=== PATIENT | female | born 1995 | race Caucasian/White ===

== ENCOUNTER 2018-09-26 09:04 | Inpatient (IN) | payer OTHER ==
[~2018-09-26] VITALS: Ht 170.2 cm; Wt 108.9 kg
[2018-09-26 09:10] VITALS: BP 138/79
[2018-09-26] MEDS ORDERED: BIRTH CONTROL (09:14)
[2018-09-26 09:35] LABS: ABSOLUTE NEUTROPHILS 16.9 thou/uL (1.4-8.2); BASOPHILS 0.3 % (0.0-2.0); EOSINOPHILS 0.5 % (0.0-3.0); HEMATOCRIT 38.6 % (37.0-47.0); HEMOGLOBIN 12.5 gm/dL (12.0-15.0); LYMPHOCYTES 4.4 % (24.0-44.0); MCH 25.7 pg (26.0-34.0); MCHC 32.5 g/dL (28.0-37.0); MCV 79.1 fL (80.0-100.0); MONOCYTES 3.6 % (1.0-8.0); PLATELET COUNT 315 thou/uL (150-400); POLYS 91.2 % (36.0-66.0); RBC 4.88 mil/uL (4.20-5.00); RDW 14.9 % (10.5-14.5); WBC 18.5 thou/uL (4.0-11.0)
[2018-09-26 09:45] LABS: CALCIUM 9.5 mg/dL (8.5-10.1); CREATININE 0.9 mg/dL (0.6-1.0); POTASSIUM 3.7 mmol/L (3.5-5.1)
[2018-09-26 09:51] LABS: TOTAL BILIRUBIN 0.5 mg/dL (<0.1-1.0)
--- NOTE | 2018-09-26 12:38 | NUR ---
PT TO [facility] AT THIS TIME, INDEPENDENTLY WITHOUT DIFFICULTY. CALL LIGHT IN REACH
[2018-09-26 13:00] LABS: AMP/METHAMP Negative (Negative); BARBITURATES Negative (Negative); BENZODIAZEPINES Negative (Negative); COCAINE Negative (Negative); METHADONE Negative (Negative); OPIATES Negative (Negative); PCP Negative (Negative)
[2018-09-26 13:48] VITALS: BP 154/91
[2018-09-26 14:04] VITALS: BP 127/85
--- NOTE | 2018-09-26 14:07 | NUR ---
PT AMBULATE TO BATHROOM, WALKING INDEPENDENTLY
--- NOTE | 2018-09-26 14:13 | NUR ---
FIRST ATTEMPT TO CALL REPORT AT THIS TIME, WAS INFORMED ROOM HAS NOT BEEN ASSIGNED YET AND FLOOR RN WILL CALL BACK W/IN 5-10 MINS
--- NOTE | 2018-09-26 15:04 | NUR ---
HERO ADMITTED TO ROOM AT THIS TIME. SHE IS HYPERVENTILATING. SHE DENIES PAIN. ORIENTED TO AND ROUTINE. WILL CONT WITH PLAN OF CARE
--- NOTE | 2018-09-26 16:13 | EKG ---
[place] [address] [facility] [place] [address] ELECTROCARDIOGRAM REPORT Name: NIKUNJ MANUEL Room #: 356-P ADM IN M.R.#: [id number] ������������������ Admission: 09/26/18 ������������������ Attend Phys: Ming Constantino MD Discharge: ������������������ Date of : 89 Report #: [id number] ����������������������������������������������������������������� [id number] THIS REPORT FOR: //name// [facility] ED Test Date: 2018-09-26 Test Time: 09:10:12 Pat Name: NIKUNJ MNAUEL Department: Room: 356 Gender: F [employer]visor [employer]: CARRIE : 1995 Requested By: Homero Nevarez Order Number: [id number] MD: Fitz Snider Measurements Intervals [place] Rate: 106 P: 32 FL: 117 QRS: 80 QRSD: 85 T: 23 QT: 333 QTc: 443 Interpretive Statements Sinus tachycardia Otherwise normal tracing No previous ECG available for comparison Electronically Signed On 09-26-2018 16:12:53 CDT by Fitz Snider [email or web address] ��������������������������������������������� <ELECTRONICALLY SIGNED> ���������������������������������������� By: Fitz Snider MD, [facility] ��������������������������������������������� 09/26/18 1612 0910 9 Fitz Snider MD, FACC /EPI
[2018-09-26 19:45] VITALS: BP 134/81
[2018-09-27] VITALS: BP 140/87
[2018-09-27 03:30] VITALS: BP 118/71
--- NOTE | 2018-09-27 04:34 | NUR ---
Patient making slow progress towards outcome goals. Temp 99.4 oral this morning. BP and rhythm stable. Short of air and tachycardic HR up to 160 with activity and returns to baseline at rest. Refused Lovenox, states understanding of risks. IVFluids infusing. States breathing improved overall.
[2018-09-27 05:41] LABS: HEMATOCRIT 35.1 % (37.0-47.0); HEMOGLOBIN 11.4 gm/dL (12.0-15.0); MCH 25.8 pg (26.0-34.0); MCHC 32.5 g/dL (28.0-37.0); MCV 79.5 fL (80.0-100.0); RBC 4.41 mil/uL (4.20-5.00); RDW 15.5 % (10.5-14.5); WBC 15.4 thou/uL (4.0-11.0)
[2018-09-27 05:54] LABS: CREATININE 0.8 mg/dL (0.6-1.0); POTASSIUM 3.3 mmol/L (3.5-5.1)
[2018-09-27 07:13] VITALS: BP 113/61
[2018-09-27] MEDS ORDERED: LEVAQUIN 500 M500 M2 PO (12:13)
[2018-09-27] MEDS ORDERED: PREDNISONE 10 M10 MG PO (12:14)
[2018-09-27] MEDS ORDERED: VENTOLIN HFA 1818 GM INH (12:14)
[2018-09-27 13:02] VITALS: BP 113/61
--- NOTE | 2018-09-27 13:09 | NUR ---
ASSUMED CARE OF PT AT APPROX 0700. PT IS ALERT AND ORIENTED X4, MONITORED ON TELE AND ABLE TO MAINTAIN 02 SAT >90 ON RA NOW. PT DENIES SOA WHILE RESTING BUT STATES THAT SOA WITH ACTIVITY HAS IMPROVED GREATLY. EVEN NON LABORED BREATHING. DENIES PAIN. ASSESSMENT CHARTED. RECIEVED ORDER FOR DC. COMPLETED DC. PRINTED EDUCATION FOR NEW RX. PT RESQUESTS TO SHOWER BEFORE DISCHARGE. PT IS CURRENTLY SHOWERING. WILL UPDATE NEEDED.
[2018-09-28] MEDS ORDERED: LEVAQUIN 500 M500 M1 PO (10:24)
[2018-09-28] MEDS ORDERED: VENTOLIN HFA 1818 GM INH (10:24)
[2018-09-28] MEDS ORDERED: PREDNISONE 20 M20 MG PO (10:24)
== END 2018-09-27 14:32 | disposition home or self-care (01) | DRG 871 ==
LOC: ER 09:04 → 3W 13:48 → EROBS 13:48 → 3W 15:05
PROVIDERS: Emergency Medicine; ADMIT Hospitalist
DX: A41.9 Sepsis, unspecified organism (principal); J96.01 Acute respiratory failure with hypoxia; J45.901 Unspecified asthma with (acute) exacerbation; F12.90 Cannabis use, unspecified, uncomplicated; F17.210 Nicotine dependence, cigarettes, uncomplicated; Z79.899 Other long term (current) drug therapy
CPT/HCPCS: 10879

== ENCOUNTER 2018-09-28 10:07 | Emergency (ER) | payer OTHER ==
[~2018-09-28] VITALS: Ht 175.3 cm; Wt 104.3 kg
[2018-09-28 10:20] VITALS: BP 118/85
== END 2018-09-28 10:50 | disposition home or self-care (01) ==
LOC: ER 10:07
DX: J20.9 Acute bronchitis, unspecified (principal); F12.10 Cannabis abuse, uncomplicated; F17.210 Nicotine dependence, cigarettes, uncomplicated